=== PATIENT | female | born 1985 | race Caucasian/White ===

== ENCOUNTER 2016-11-22 09:25 | Emergency (ER) | payer BC, OTHER ==
[~2016-11-22] VITALS: Ht 162.6 cm; Wt 103.0 kg
[~2016-11-22 09:25] MED LIST: AMOX500C PO; PREN1CAP7 PO
[2016-11-22 09:26] VITALS: BP 111/67; PULSE 97; RESP 20; TEMP 97.5; O2SAT 96
--- NOTE | 2016-11-22 09:48 | PD ---
HPI Chief Complaint: Cold / Flu Symptoms Time Seen by Provider: 09:48 Travel History International Travel<30 days: No Contact w/Intl Traveler<30days: No Traveled to known affect area: No History of Present Illness HPI 31-year-old female presents the emergency department with sudden onset like symptoms including headache, chills, cough, and body aches since yesterday afternoon. Patient denies nausea or vomiting or diarrhea. Patient is known to be 23 weeks . Patient has chest congestion with productive cough of clear to yellowish sputum. She denies shortness of breath or wheezing however. Patient has no vaginal bleeding or abdominal cramping or pain. Patient has no known drug allergies. PFSH Past Medical History ?: LMP: 06/07/16 Social History Alcohol Use: No Tobacco Use: No Substance Use: No Allergies-Medications (Allergen,Severity, Reaction): Coded Allergies: No Known Allergies (Unverified , 11/12/16) Reported Meds & Prescriptions Reported Meds & Active Scripts Active Amoxicillin 500 Mg Cap 500 Mg PO TID Citranatal [place] ( W/O Vit A W/ Fe Fumar) 27-1-260 Mg Cap 1 Cap PO DAILY Review of Systems Except as stated in HPI: all other systems reviewed are Neg General / Constitutional: Positive: Chills, No: Fever Eyes: No: Visual changes HENT: Positive: Headaches, Sore Throat, Rhinitis, Rhinorrhea, Congestion, No: Ear Discharge, Earache Cardiovascular: No: Chest Pain or Discomfort Respiratory: Positive: Cough, No: Shortness of Breath, Wheezing, Sneezing, Pleuritic Pain Gastrointestinal: No: Abdominal Pain Genitourinary: No: Dysuria Musculoskeletal: Positive: Myalgias, No: Pain Skin: No Rash Neurologic: No: Weakness Psychiatric: No: Depression Endocrine: No: Polydipsia Hematologic/Lymphatic: No: Easy Bruising Physical Exam Narrative GENERAL: Patient appears no acute distress. SKIN: Warm and dry. Normal color. Normal turgor. HEAD: Atraumatic. Normocephalic. EYES: Pupils equal and round. No scleral icterus. No injection or drainage. ENT: No nasal bleeding or discharge. Mucous membranes pink and moist. TMs are clear bilaterally. Pharynx appears unremarkable. Patent. No significant lymphadenopathy. NECK: Trachea midline. Supple nontender without lymphadenopathy. CARDIOVASCULAR: Regular rate and rhythm. RESPIRATORY: No accessory muscle use. Clear to auscultation. Breath sounds equal bilaterally. GASTROINTESTINAL: Abdomen soft, non-tender, nondistended. Hepatic and splenic margins not palpable. Gravid uterus. MUSCULOSKELETAL: Extremities without clubbing, cyanosis, or edema. No obvious deformities. NEUROLOGICAL: Awake and alert. No obvious cranial nerve deficits. Motor grossly within normal limits. Five out of 5 muscle strength in the arms and legs. Normal speech. PSYCHIATRIC: Appropriate mood and affect; insight and judgment normal. Data Data Last Documented VS Vital Signs Date Time Temp Pulse Resp B/P Pulse Ox O2 Delivery O2 Flow Rate FiO2 11/22/16 09:26 97.5 97 20 111/67 96 Room Air Orders Influenzae A/B Antigen (11/22/16 09:51) MDM Medical Decision Making Medical Screen Exam Complete: Yes Emergency Medical Condition: Yes Differential Diagnosis Febrile illness. Viral illness. Influenza. 23 weeks . Narrative Course Patient is medically stable at time of exam. Rapid Influenza is sent to the lab. Rapid influenza is negative for influenza A or B. Patient is given acetaminophen, and Zofran take as needed for symptoms. She is to rest and push fluids as much as possible. Patient to follow with her chocolate packer as needed. Diagnosis Primary Impression: Systemic viral illness Referrals: [facility] Patient Instructions: General Instructions Additional Instructions: Rapid influenza is negative for influenza A or B. Patient is given acetaminophen, and Zofran take as needed for symptoms. She is to rest and push fluids as much as possible. Patient to follow with her chocolate packer as needed. Med/Other Pt SpecificInfo: Prescription(s) given Disposition: 01 DISCHARGE HOME Condition: Stable Damaso Ott Nov 22, 2016 09:48
[2016-11-22] MEDS ORDERED: ACET325T PO (10:51)
[2016-11-22] MEDS ORDERED: ZOFR4TAB PO (10:51)
== END 2016-11-22 11:18 | disposition home or self-care (01) ==
LOC: NEPB 09:25
DX: B34.9 Viral infection, unspecified (principal)
CPT/HCPCS: 87804; 99284

== ENCOUNTER → 2016-12-13 | Outpatient (CLI) | payer BC, OTHER ==
[~2016-12-13] MED LIST changes: -AMOX500C PO; +BENZ20T TOPICAL; +IBUP-232 PO; +SENN1TAB PO
== END ==
LOC: CLAB 08:26
PROVIDERS: ATTEND Nurse Practitioner Women's Health
DX: O36.0130 Maternal care for anti-D [Rh] antibodies, third trimester, not applicable or unspecified (principal)
CPT/HCPCS: 36415; 86850; 86900; 86901; 90384; 96372; J2790

== ENCOUNTER 2016-12-26 16:47 | Emergency (ER) | payer BC, MEDICAID ==
[~2016-12-26 16:47] MED LIST changes: -BENZ20T TOPICAL; -IBUP-232 PO; -SENN1TAB PO
[2016-12-26 17:57] LABS: BACTERIA, URINE FEW /hpf; BLOOD, URINE TRACE (NEG); COMMENT (UR) CULT NOT INDICATED; CULTURE IF INDICATED CULT NOT INDICATED; GLUCOSE,URINE NEG (NEG); KETONE, URINE NEG (NEG); MUCUS URINE FEW /lpf (OCC); NITRITE,URINE NEG (NEG); SQUAMOUS EPITHELIAL CELL URINE 4 /hpf (0-5); URINE COLOR YELLOW (YELLW/STRAW)
[2016-12-26 18:10] VITALS: PULSE 82
--- NOTE | 2016-12-26 18:15 | PD ---
HPI Chief Complaint Pain and lower abdomen after last night getting up to help her child she doesn' t is in trouble and so she ran into his room almost immediately began having lower abdominal muscle pain began hurting in the lower abdomen. She denies bleeding or ruptured membranes. She has noticed some decreased movement today. Date Seen: Dec 26, 2016 Travel History International Travel<30 Days: No Contact w/Intl Traveler<30Days: No Known Affected Area: No History of Present Illness HPI This patient is a 31-year-old white female at 28 weeks with decreased movement movement lower abdominal pelvic pain and pressure after last night getting up in running and her son's room. P.m. and soon after that started having all this pain and that she would go through the night when turning over moving it which she this pain across it would be very uncomfortable. heart rate tracing is reactive today there no contractions she has no rupture the membranes Para: 2 : 3 History Obstetric History Obstetric History 2 previous vaginal deliveries Social History Narrative Social History [facility] Alcohol Use: No Tobacco Use: No Substance Abuse: No Allergies-Medications (Allergen,Severity, Reaction): Coded Allergies: No Known Allergies (Unverified , 12/10/16) Home Meds Active Scripts W/O Vit A W/ Fe Fumar (Citranatal [place])27-1-260 Mg Cap1 Cap PO DAILY #30 CAP Ref 11 Prov:BowlingAnnette CNM [facility] 09/07/16 Review of Systems General / Constitutional: No: Fever, Weight Gain, Chills, Other Eyes: No: Diploplia, Blurred Vision, Visual changes, Pain, Photophobia HENT: No: Headaches, Vertigo, Lightheadedness Cardiovascular: No: Irregular Rhythm, Chest Pain or Discomfort, Palpitations, Tachycardia, Syncope, Varicosities, Edema, Cyanosis Respiratory: No: Cough, Short of Breath, Other Gastrointestinal: Abdominal Pain, No: Nausea, Vomiting, Diarrhea Genitourinary: No: Decreased Urinary Output, Oliguria Musculoskeletal: No: Limited ROM, Weakness, Cramping, Edema, Pain Skin: No Rash, No Itching, No Dryness, No Lumps, No Change in Pigmentation, No Change in Nails, No Alopecia, No Lesions Neurologic: No: Weakness, Dizziness, Syncope, Focal Abnormalities, Coordination Problem, Headache, Slurred Speech, Seizures Psychiatric: No: Depression, Suicidal Ideations, Homicidal Ideation Endocrine: No: Heat Intolerance, Cold Intolerance, Polydipsia, Polyuria, Other Physical Exam Narrative GENERAL: Well-nourished, well-developed patient. SKIN: Warm and dry. HEAD: Normocephalic and atraumatic. EYES: No scleral icterus. No injection or drainage. ENT: No nasal drainage noted. Mucous membranes pink. Airway patent. NECK: Supple, trachea midline. No JVD. CARDIOVASCULAR: Regular rate and rhythm without murmurs, gallops, or rubs. RESPIRATORY: Breath sounds equal bilaterally. No accessory muscle use. BREASTS: Bilateral exam showed no masses , no retractions, no nipple discharge. ABDOMEN/GI: Abdomen soft, non-tender, bowel sounds present, no rebound, no guarding Gravid to [-28] weeks size Fundal Height: [-28] GENITOURINARY: External Genitalia: intact and normal in appearance BUS glands: [-] Cervix: [Closed-] Dilatation: [Closed-] Effacement: [-] Thick Station: [-3] Membranes: [intact ] Uterine Contractions: [-None] FHT's: Category: [1-] Baseline: [-133] Reactive: [yes-] Variability: [-mod] Decels: [none-] EXTREMITIES: No cyanosis or edema. BACK: Nontender without obvious deformity. No CVA tenderness. NEUROLOGICAL: Awake and alert. Motor and sensory grossly within normal limits. Five out of 5 muscle strength in all muscle groups. Normal speech. Data Data Orders Vital Signs (Adult) .ON ADMISSION (12/26/16 17:31) ^ Labor Status (12/26/16 17:31) Urinalysis - C+S If Indicated (12/26/16 17:31) Labs Laboratory Tests Test 12/26/16 17:17 Urine Color YELLOW Urine Turbidity HAZY Urine pH 6.0 Urine Specific [place] 1.025 Urine Protein 30 Urine Glucose (UA) NEG Urine Ketones NEG Urine Occult Blood TRACE Urine Nitrite NEG Urine Bilirubin NEG Urine Urobilinogen 2.0 Urine Leukocyte Esterase NEG Urine RBC 2 Urine WBC 1 Urine Squamous Epithelial 4 Cells Urine Bacteria FEW Urine Mucus FEW Microscopic Urinalysis Comment CULT NOT INDICATED MDM Interpretation(s) This patient is a 31-year-old white female at 28 weeks presents complaining of lower abdominal pain since last night getting up to help her son and she ran into his room in over herself she pulls soft tissue ligaments or muscle strain and pain. heart rate tracing is reactive she has no contractions are urinalysis is negative, so was almost certainly soft tissue strain. Plan offered the patient a pain shot if she wants it to help relieve some of the symptoms otherwise she needs to be at home bedrest someone to help her with her children so she can rest and take Tylenol liberally for pain heating pad on low and lower abdomen over soaking in a hot bath tub also to be at bedrest over the next 48 hours to allow this to heal if she keeps moving and going and she and moving around she's going to keep hurting Diagnosis Diagnosis: Primary Impression: Abdominal pain affecting , antepartum Additional Impression: Decreased movement affecting management of in third trimester Disposition: 01 DISCHARGE HOME Condition: Stable Patient Instructions: General Instructions Departure Forms: Tests/Procedures Pedro Brown II, MD Dec 26, 2016 18:15
== END 2016-12-26 18:34 | disposition home or self-care (01) ==
LOC: HOBED 16:47
DX: O36.8130 Decreased fetal movements, third trimester, not applicable or unspecified (principal); R10.30 Lower abdominal pain, unspecified; Z3A.28 28 weeks gestation of pregnancy
CPT/HCPCS: 81001; 99284

== ENCOUNTER 2017-02-17 10:35 | Emergency (ER) | payer BC, MEDICAID ==
--- NOTE | 2017-02-17 11:17 | PD ---
HPI Chief Complaint Contractions Time Seen: 11:14 Travel History International Travel<30 Days: No Contact w/Intl Traveler<30Days: No Known Affected Area: No History of Present Illness HPI 31-year-old who is at 36 weeks 3 days comes in complaining of contractions intermittently since 7 AM this morning. Although they are uncomfortable she would not call them painful but they have been persistent. Patient has a history of a spontaneous vaginal delivery of a 9 lbs. 8 oz. child followed by a section for macrosomia at 10 lbs. 11 oz. and she is looking forward to a vaginal with this . No issues thus far Para: 2 : 3 History Obstetric History Obstetric History Spontaneous vaginal delivery section for macrosomia and polyhydramnios 10 lbs. 11 oz. Past Surgical History Narrative Surgical section Cholecystectomy Family History Family History: Negative Social History Alcohol Use: No Tobacco Use: No Substance Abuse: No Allergies-Medications (Allergen,Severity, Reaction): Coded Allergies: No Known Allergies (Unverified , 02/04/17) Home Meds Active Scripts W/O Vit A W/ Fe Fumar (Citranatal [place])27-1-260 Mg Cap1 Cap PO DAILY #30 CAP Ref 11 Prov:Annette Bowling CNM [facility] 09/07/16 Review of Systems Except as stated in HPI: all other systems reviewed are Neg Physical Exam Narrative GENERAL: Well-nourished, well-developed patient. SKIN: Warm and dry. HEAD: Normocephalic and atraumatic. EYES: No scleral icterus. No injection or drainage. ENT: No nasal drainage noted. Mucous membranes pink. Airway patent. NECK: Supple, trachea midline. No JVD. CARDIOVASCULAR: Regular rate and rhythm without murmurs, gallops, or rubs. RESPIRATORY: Breath sounds equal bilaterally. No accessory muscle use. BREASTS: Bilateral exam showed no masses , no retractions, no nipple discharge. ABDOMEN/GI: Abdomen soft, non-tender, bowel sounds present, no rebound, no guarding Gravid to [-39] weeks size Fundal Height: [-] GENITOURINARY: External Genitalia: intact and normal in appearance BUS glands: [Normal-] Cervix: [Posterior-] Dilatation: [-Closed] Effacement: [-25] Station: [-3] Presentation: [-Vertex ] Membranes: [intact ] Uterine Contractions: [Every 3-5-] FHT's: Category: [1-] Baseline: [140-] Reactive: [-Moderate] Variability: [-Moderate] Decels: [Absent-] EXTREMITIES: No cyanosis or edema. BACK: Nontender without obvious deformity. No CVA tenderness. NEUROLOGICAL: Awake and alert. Motor and sensory grossly within normal limits. Five out of 5 muscle strength in all muscle groups. Normal speech. Reexamination at 12:17 Contractions are less frequent Cervix unchanged. FHR tracing unchanged with moderate variability, baseline 140 Data Data Orders Vital Signs (Adult) .ON ADMISSION (02/17/17 11:12) ^ Labor Status (02/17/17 11:12) Diet Liquid (02/17/17 Lunch) Group B Beta Strep Scrn (Gbs) (02/17/17 11:12) MDM Medical Record Reviewed: Yes Plan at 36 weeks and 3 days with false labor Patient has follow-up this week to see [facility] Will discharge home with hydration and increase rest today Diagnosis Diagnosis: Primary Impression: 36 weeks gestation of Additional Impressions: False labor False labor before 37 completed weeks of gestation during in third trimester, antepartum Disposition: DISCHARGE HOME Rain Stanford MD February 17, 2017 11:17
== END 2017-02-17 12:36 | disposition home or self-care (01) ==
LOC: HOBED 10:35
DX: O47.03 False labor before 37 completed weeks of gestation, third trimester (principal); O34.219 Maternal care for unspecified type scar from previous cesarean delivery; Z3A.36 36 weeks gestation of pregnancy
CPT/HCPCS: 59025; 87081

== ENCOUNTER 2017-03-14 22:12 | Inpatient (IN) | payer BC, MEDICAID ==
[2017-03-14] MEDS ORDERED: LACTATED RINGER'S 1000 ML INJ 1,000 ML IV SCH (22:52)
[2017-03-14] MEDS ORDERED: LACTATED RINGER'S 1000 ML INJ 1,000 ML IV PRN (22:52)
--- NOTE | 2017-03-14 22:56 | PD ---
HPI Chief Complaint Contractions Date Seen: Mar 14, 2017 Travel History International Travel<30 Days: No Contact w/Intl Traveler<30Days: No Known Affected Area: No History of Present Illness HPI Patient is a 32-year-old female at 40/0 weeks gestation, patient of [facility], that presents to the [place] [facility] ED with a chief complaint of contractions that began around 9 AM this morning but worsened at around 6:30 PM this evening. Patient denies loss of fluid or vaginal bleeding but may have lost her mucous plug. Notably, she had a consult this morning with the OB hospitalist for a considering that has second ended in a for failure to progress. She denies any complications with this , stating that all her test has been negative all within normal limits, and the baby has been growing well with normal fluid levels. Notably, she is GBS negative. Para: 2 : 3 History Past Medical History Medical History: Denies Significant Hx Obstetric History Obstetric History First was a vaginal delivery - 9 lbs. 5 oz. Second was a section for failure to progress - 10 lbs. 9 oz. Past Surgical History Narrative Surgical Cholecystectomy Family History Narrative Family History Maternal grandfather had diabetes No family history of hypertension Social History Alcohol Use: No Tobacco Use: No Substance Abuse: No Allergies-Medications (Allergen,Severity, Reaction): Coded Allergies: No Known Allergies (Unverified , 03/12/17) Home Meds Active Scripts W/O Vit A W/ Fe Fumar (Citranatal [place])27-1-260 Mg Cap1 Cap PO DAILY #30 CAP Ref 11 Prov:Annette Bowling CNM [facility] 09/07/16 Review of Systems Except as stated in HPI: all other systems reviewed are Neg Physical Exam Narrative GENERAL: Well-nourished, well-developed patient. SKIN: Warm and dry. HEAD: Normocephalic and atraumatic. EYES: No scleral icterus. No injection or drainage. ENT: No nasal drainage noted. Mucous membranes pink. Airway patent. NECK: Supple, trachea midline. No JVD. CARDIOVASCULAR: Regular rate and rhythm without murmurs, gallops, or rubs. RESPIRATORY: Breath sounds equal bilaterally. No accessory muscle use. BREASTS: Bilateral exam showed no masses , no retractions, no nipple discharge. ABDOMEN/GI: Abdomen soft, non-tender, bowel sounds present, no rebound, no guarding Gravid to 40 weeks size Fundal Height: 40 cm GENITOURINARY: External Genitalia: intact and normal in appearance Cervix: Midposition Dilatation: 5-6cm Effacement: 70% Station: -3 Presentation: Vertex Membranes: intact Uterine Contractions: present q2-3mins FHT's: Category: I Baseline: 145 Reactive: Reactive up to 180 Variability: Moderate Decels: None EXTREMITIES: No cyanosis or edema. BACK: Nontender without obvious deformity. No CVA tenderness. NEUROLOGICAL: Awake and alert. Motor and sensory grossly within normal limits. Five out of 5 muscle strength in all muscle groups. Normal speech. Data Data Vital Signs Reviewed: Yes Orders Ob (2e) Additional Admit Info (03/14/17 22:40) Admit To Inpatient (03/14/17 ) Vital Signs (Adult) .Per protocol (03/14/17 22:52) Heart (03/14/17 22:52) Amnioinfusion (03/14/17 22:52) Urinary Catheter Management .ONCE (03/14/17 22:52) Diet Npo (03/15/17 Breakfast) Lactated Ringer's 1000 Ml Inj (Lr 1000 M (03/14/17 22:52) Lactated Ringer's 1000 Ml Inj (Lr 1000 M (03/14/17 22:52) Sodium Chlorid 0.9% 500 Ml Inj (Ns 500 M (03/14/17 23:00) Sodium Chlor 0.9% 1000 Ml Inj (Ns 1000 M (03/14/17 23:12) Lidocaine 1% Inj (50 Ml) (Xylocaine 1% I (03/14/17 23:00) Citric Acid-Sodium Citrate Liq (Bicitra (03/14/17 23:00) Fentanyl Inj (Fentanyl Inj) (03/14/17 23:00) Fentanyl Inj (Fentanyl Inj) (03/14/17 23:00) Complete Blood Count With Diff (03/14/17 22:52) Hold Clot (03/14/17 22:52) Abo/Rh Blood Type (03/14/17 22:52) Urinalysis - C+S If Indicated (03/14/17 22:52) Resp Oxygen Non Rebreathe Mask (03/14/17 ) ^ Epidural / Intrathecal Infus (03/14/17 22:52) Oxytocin 30 Units-500ml Premix (Pitocin (03/14/17 23:00) Lidocaine 1% Inj (50 Ml) (Xylocaine 1% I (03/14/17 23:00) Light Mineral Oil (Muri-Lube Oil) (03/14/17 23:00) Inpatient Certification (03/14/17 ) Specimen To Be Collected PRN (03/14/17 22:52) MDM Medical Record Reviewed: Yes Interpretation(s) 32-year-old presents in active labor, GBS positive Plan 1. Intrauterine -Category 1 tracing - reassuring -Membranes intact -A-, will require [place] after delivery 2. Actively gail, consider augmentation if spaced out -Admit to L&D -Labs sent -Type and screen -Plan for epidural Xochitl Tapia MD R1 Mar 14, 2017 22:56
--- NOTE | 2017-03-14 22:57 | HHI.HP ---
History & Physical H&P Chief Complaint Patient is 32-year-old white female previous now presents in labor CTXing regularly, Patient is desiring a delivery if possible since she delivered her first baby vaginally Date Seen: Mar 14, 2017 Travel History International Travel<30 Days: No Contact w/Intl Traveler<30Days: No Known Affected Area: No History of Present Illness HPI This patient is 32-year-old white female previous at 40 weeks presents for consultation in scheduling if she doesn't deliver vaginally in the next week. [facility] and her records are available. She delivered her first baby vaginally was 9 lbs. 5 oz. She had no shoulder dystocia problem with that delivery. Second baby ultrasound findings which showed baby was 13 pounds on ultrasound so heavily as suggested induction of labor. She was induced did not change her cervix well and was sectioned for failure to progress baby was 10 lbs. 9 oz. this current she had an ultrasound done on 03/07 1 week ago and the baby was 8 lbs. 14 oz. the patient is high motivated to have a vaginal delivery if possible and would like to wait a week and schedule her at that time and she has not had labor by then will have a repeat section Para: 2 : 3 History (Limited) History Obstetric History Obstetric History , One vaginal delivery and 1 section, the patient has history of large babies first baby 9 lbs. 5 oz. second baby 10 lbs. 9 oz. Past Surgical History Narrative Surgical 1 , GB out Social History Alcohol Use: No Tobacco Use: No Substance Abuse: No Allergies-Medications Allergies-Medications (Allergen,Severity, Reaction): Coded Allergies: No Known Allergies (Unverified , 03/12/17) Home Meds Active Scripts W/O Vit A W/ Fe Fumar (Citranatal [place])27-1-260 Mg Cap1 Cap PO DAILY #30 CAP Ref 11 Prov:Annette Bowling CNM [facility] 09/07/16 ROS Review of Systems General / Constitutional: No: Fever, Weight Gain, Chills, Other Eyes: No: Diploplia, Blurred Vision, Visual changes, Pain, Photophobia HENT: No: Headaches, Vertigo, Lightheadedness Cardiovascular: No: Irregular Rhythm, Chest Pain or Discomfort, Palpitations, Tachycardia, Syncope, Varicosities, Edema, Cyanosis Respiratory: No: Cough, Short of Breath, Other Gastrointestinal: Abdominal Pain, No: Nausea, Vomiting, Diarrhea Genitourinary: No: Decreased Urinary Output, Oliguria Musculoskeletal: No: Limited ROM, Weakness, Cramping, Edema, Pain Skin: No Rash, No Itching, No Dryness, No Lumps, No Change in Pigmentation, No Change in Nails, No Alopecia, No Lesions Neurologic: No: Weakness, Dizziness, Syncope, Focal Abnormalities, Coordination Problem, Headache, Slurred Speech, Seizures Psychiatric: No: Depression, Suicidal Ideations, Homicidal Ideation Endocrine: No: Heat Intolerance, Cold Intolerance, Polydipsia, Polyuria, Other Physical Exam Physical Exam Narrative GENERAL: Well-nourished, well-developed patient. SKIN: Warm and dry. HEAD: Normocephalic and atraumatic. EYES: No scleral icterus. No injection or drainage. ENT: No nasal drainage noted. Mucous membranes pink. Airway patent. NECK: Supple, trachea midline. No JVD. CARDIOVASCULAR: Regular rate and rhythm without murmurs, gallops, or rubs. RESPIRATORY: Breath sounds equal bilaterally. No accessory muscle use. BREASTS: Bilateral exam showed no masses , no retractions, no nipple discharge. ABDOMEN/GI: Abdomen soft, non-tender, bowel sounds present, no rebound, no guarding Gravid to [-40] weeks size Fundal Height: [-42] GENITOURINARY: External Genitalia: intact and normal in appearance BUS glands: [-] Cervix: [-] Dilatation: [5-6-] Effacement: [-70] Station: [-3] Presentation: vtx Membranes: [intact ] Uterine Contractions: regular] FHT's: Category: [-1] Baseline: [133-] Reactive: [-yes] Variability: [mod-] Decels: [0-] EXTREMITIES: No cyanosis or edema. BACK: Nontender without obvious deformity. No CVA tenderness. NEUROLOGICAL: Awake and alert. Motor and sensory grossly within normal limits. Five out of 5 muscle strength in all muscle groups. Normal speech. Data Data [facility] Interpretation(s) Patient is 32-year-old white female previous now 40 weeks gestation presents in labor cx 5-6 cm , for from the [facility], patient desires a if possible as she delivered her first baby vaginally. The first baby weighed 9 lbs. 5 oz. The second baby was measuring on ultrasound very heavy was 13 pounds so she was induced and that failed and she had a , that baby weighed 10 lbs. 9 oz. Plan Plan is for total outpatient another week to go to labor and sagittal was estimated weight week ago was 8 lbs. 14 oz. baby is probably 9 pounds now and she's delivered a 9 pound pounder in the past without problem . She had has risk and benefits of delivering vaginally there is a possibility of shoulder dystocia and trauma from vaginal . Diagnosis: previous section Disposition Admit to L&D Condition: Stable Pedro Brown II, MD Mar 14, 2017 13:36 Pdero Brown II, MD Mar 14, 2017 22:57
[2017-03-14] MEDS ORDERED: MINERAL OIL 10 ML VIAL TOPICAL PRN (23:00)
[2017-03-14] MEDS ORDERED: SODIUM CHLORID 0.9% 500 ML INJ 500 ML IV PRN (23:00)
[2017-03-14] MEDS ORDERED: CITRIC ACID-SODIUM CITRATE LIQ 30 ML UDC PO SCH (23:00)
[2017-03-14] MEDS ORDERED: LIDOCAINE HCL 1% 50 ML VIAL I-DERMAL PRN (23:00)
[2017-03-14] MEDS ORDERED: OXYTOCIN 30 UNITS-500ML PREMIX 500 ML IV ONE (23:00)
[2017-03-14] MEDS ORDERED: LIDOCAINE HCL 1% 50 ML VIAL INFIL PRN (23:00)
[2017-03-14] MEDS ORDERED: SODIUM CHLOR 0.9% 1000 ML INJ 1,000 ML IV PRN (23:12)
[2017-03-14 23:24] LABS: AUTOMATED NEUTROPHIL # 9.8 TH/MM3 (1.8-7.7); BASOPHIL # 0.1 TH/MM3 (0-0.2); BASOPHIL % 0.5 % (0.0-2.0); EOSINOPHIL # 0.2 TH/MM3 (0-0.4); EOSINOPHIL % 1.4 % (0.0-4.0); HEMO FLAGS DIFF FINAL; LYMPH % 17.9 % (9.0-44.0); LYMPHOCYTE # 2.5 TH/MM3 (1.0-4.8); MEAN CELL VOLUME 85.2 FL (80.0-100.0); MEAN CORPUSCULAR HEMOGLOBIN 29.2 PG (27.0-34.0); MEAN CORPUSCULAR HGB CONC 34.3 % (32.0-36.0); MONO % 10.4 % (0.0-8.0); NEUT % 69.8 % (16.0-70.0); PLATELET COUNT 331 TH/MM3 (150-450); RED BLOOD COUNT 4.34 MIL/MM3 (4.00-5.30); RED CELL DISTRIBUTION WIDTH 14.8 % (11.6-17.2)
[2017-03-14 23:35] LABS: BACTERIA, URINE OCC /hpf; BLOOD, URINE NEG (NEG); COMMENT (UR) CULT NOT INDICATED; CULTURE IF INDICATED CULT NOT INDICATED; GLUCOSE,URINE NEG (NEG); KETONE, URINE NEG (NEG); MUCUS URINE FEW /lpf (OCC); NITRITE,URINE NEG (NEG); SQUAMOUS EPITHELIAL CELL URINE 1 /hpf (0-5); URINE COLOR YELLOW (YELLW/STRAW)
[2017-03-14] MEDS ORDERED: ePHEDrine/NS 25 MG/5 ML SYR ONE (23:40)
[2017-03-14] MEDS ORDERED: fentaNYL 2MCG-BUPIV 0.125% INJ 100 ML ONE (23:40)
[2017-03-14 23:50] VITALS: BP 119/66; PULSE 68
[2017-03-14 23:55] VITALS: PULSE 77; O2SAT 100
[2017-03-14 23:57] VITALS: BP 121/66; PULSE 67
[2017-03-15] VITALS (12 sets, daily range): BP systolic 106–125; BP diastolic 60–85; PULSE 66–89; RESP 16–18; TEMP 98–98.7; O2SAT 100
[2017-03-15] MEDS ORDERED: ePHEDrine/NS 25 MG/5 ML SYR IV PRN (00:30)
[2017-03-15] MEDS ORDERED: fentaNYL 2MCG-BUPIV 0.125% 100 ML EPIDURAL SCH (00:30)
[2017-03-15] MEDS ORDERED: NO SYSTEM NARCOTICS PRN (00:30)
[2017-03-15] MEDS ORDERED: DO NOT ADMINISTER ANTICOAGULANTS PRN (00:30)
[2017-03-15] MEDS ORDERED: oxyCODONE/ACETAMINOPHEN 5 MG/325 MG TAB PO PRN ×2 (02:00)
[2017-03-15] MEDS ORDERED: WITCH HAZEL 50%/GLYCERIN 12.5% 40 PAD JAR TOPICAL PRN (02:00)
[2017-03-15] MEDS ORDERED: DOCUSATE SODIUM 50 MG/SENNA 8.6 MG TAB PO PRN (02:00)
[2017-03-15] MEDS ORDERED: SODIUM CHLORIDE 0.9% FLUSH 10 ML FLUSH IV FLUSH PRN (02:00)
[2017-03-15] MEDS ORDERED: SODIUM CHLORIDE 0.9% FLUSH 10 ML FLUSH IV FLUSH SCH (02:00)
[2017-03-15] MEDS ORDERED: ZOLPIDEM TARTRATE 5 MG TAB PO PRN (02:00)
[2017-03-15] MEDS ORDERED: BENZOCAINE 20% TOPICAL SPRAY 60 ML CAN TOPICAL PRN (02:00)
[2017-03-15] MEDS ORDERED: ALUMINUM/MAGNESIUM/SIMETH 30 ML CUP PO PRN (02:00)
[2017-03-15] MEDS ORDERED: ONDANSETRON ODT 4 MG TAB PO PRN (02:00)
--- NOTE | 2017-03-15 02:00 | PD.OB.DELI ---
Delivery Date: Mar 15, 2017 Anesthesia: Epidural Episiotomy: None Vaginal Delivery: Normal Presentation: Occiput anterior Nuchal Cord: x1 (True knot) Delayed cord clamping (45 sec): Yes Infant: Female One Minute : 9 Five Minute : 9 Weight: 3714 g Placenta: Spontaneous delivery, Intact, 3 vessel cord Laceration: No lacerations Additional Information 32 G3 now P3 delivered a baby girl vaginally with no complications and no lacerations. performed by Dr. Tapia, supervised by Dr. Mckoy and Dr. Kevin Tapia,Xochitl Barragan Mar 15, 2017 02:00
[2017-03-15] MEDS ORDERED: OXYTOCIN 30 UNITS-500ML PREMIX 500 ML ONE (02:43)
[2017-03-15] MEDS ORDERED: OXYTOCIN 30 UNITS/NS 500ML PREMIX IV SCH (03:00)
--- NOTE | 2017-03-15 07:20 | HHI.OB ---
Subjective Post Day: 0 Remarks day # 0. AFVSS overnight. Decreased lochia. Denies dysuria. No breast tenderness. She is feeding the baby via breast. Appetite good. No nausea or vomiting. Ambulating well. Denies calf pain or shortness of breath. Otherwise, she is doing well this morning and has no other concerns. Objective Vitals/I&O Vital Signs Date Time Temp Pulse Resp B/P Pulse Ox O2 Delivery O2 Flow Rate FiO2 03/15/17 04:15 98.0 18 03/15/17 04:15 70 108/63 03/15/17 02:15 98.0 18 03/15/17 02:01 89 106/81 03/15/17 01:56 79 113/85 03/15/17 01:31 70 117/69 03/15/17 01:00 71 120/65 03/15/17 00:31 79 111/63 03/15/17 00:10 71 115/72 03/15/17 00:06 70 112/64 03/15/17 00:00 75 125/76 03/15/17 00:00 100 03/15/17 00:00 81 03/14/17 23:57 67 121/66 03/14/17 23:55 77 03/14/17 23:55 100 03/14/17 23:50 68 119/66 Objective Remarks GENERAL: Well-nourished, well-developed female in no apparent distress. She is breast-feeding baby without difficulty. CARDIOVASCULAR: Regular rate and rhythm without murmurs, gallops, or rubs. RESPIRATORY: Breath sounds equal bilaterally. No accessory muscle use. ABDOMEN/GI: Abdomen soft, non-tender. Fundus: Firm, non-tender at umbilicus. GENITOURINARY: Light to moderate bleeding. EXTREMITIES: No cyanosis or edema, non-tender, without signs of DVT. Medications and IVs Current Medications Medications (Trade) Dose Ordered Sig/Victorina Route Start Time Stop Time Status Last Admin (NS Flush) 2 ml BID IV FLUSH 03/15/17 02:00 (NS Flush) 2 ml UNSCH PRN IV FLUSH 03/15/17 02:00 (Tylenol) 650 mg Q4H PRN PO 03/15/17 02:00 (Motrin) 600 mg Q6H PRN PO 03/15/17 02:00 (Percocet 5-325 Mg) 1 tab Q4H PRN PO 03/15/17 02:00 (Percocet 5-325 Mg) 2 tab Q4H PRN PO 03/15/17 02:00 (Americaine 20% Top Spr) 1 spray Q4H PRN TOPICAL 03/15/17 02:00 (Tucks Pads) 1 applic QID PRN TOPICAL 03/15/17 02:00 (Cristela-Colace) 2 tab Q12H PRN PO 03/15/17 02:00 (Ambien) 5 mg HS PRN PO 03/15/17 02:00 (M-M-R Ii Inj) 0.5 ml ONCE ONCE SQ 03/15/17 16:00 03/15/17 16:01 (Boostrix Inj) 0.5 ml ONCE ONCE IM 03/15/17 16:00 03/15/17 16:01 (Mag-Al Plus Susp Liq) 15 ml Q8H PRN PO 03/15/17 02:00 (Zofran Odt) 4 mg Q6H PRN PO 03/15/17 02:00 Assessment/Plan Assessment and Plan 32-year-old G3P now 3 who is PPD# 1 s/p . -Continue routine care. -Tylenol and Motrin PRN pain. -Encouraged OOB. Advised pelvic rest for 6 wks. -Re: ctrl, she would like a tubal ligation. She plans to follow up with [facility] to discuss this as her is also considering sterilization -Anticipate discharge tomorrow -Blood type is A-, will require program Discussed with Dr. Brown, Zakiya Corley MD R1 Mar 15, 2017 07:20
[2017-03-15] MEDS: IBUPROFEN 600 MG TAB PO PRN (12:15)
[2017-03-15] MEDS: ACETAMINOPHEN 325 MG TAB PO PRN ×2 (14:20→19:37)
[2017-03-15] MEDS ORDERED: MEASLES, MUMPS, RUBELLA VACCINE 0.5 ML VIAL SQ ONE (16:00)
[2017-03-15] MEDS ORDERED: DIPHTH/TETANUS/ACEL PERTUSSIS (BOOSTER) 0.5 ML VIAL/PFS IM ONE (16:00)
[2017-03-16] MEDS: IBUPROFEN 600 MG TAB PO PRN ×2 (02:57→10:03)
[2017-03-16] MEDS: ACETAMINOPHEN 325 MG TAB PO PRN ×2 (02:57→10:03)
[2017-03-16 07:55] VITALS: BP 110/75; PULSE 65; RESP 18; TEMP 97.7
[2017-03-16] MEDS ORDERED: IBUP-232 PO (08:30)
[2017-03-16] MEDS ORDERED: BENZ20T TOPICAL (08:30)
[2017-03-16] MEDS ORDERED: SENN1TAB PO (08:30)
--- NOTE | 2017-03-16 08:31 | HHI.DCPOC ---
Discharge Care Plan Diagnosis: (1) Vaginal delivery Report Symptoms to Your Doctor -Temperature above 100.5 degrees -Redness, of incision or excessive or foul smelling drainage -Unusual pain or calf pain -Increased vaginal bleeding -Painful or difficulty urinating -Feelings of extreme sadness or anxiety after 2 weeks Goals to Promote Your Health * To prevent worsening of your condition and complications * To maintain your health at the optimal level Directions to Meet Your Goals Take your medications as prescribed Follow your dietary instruction Follow activity as directed Ensure plenty of rest for recovery Drink fluids for hydration Keep your appointments as scheduled Take your immunizations and boosters as scheduled If your symptoms worsen call your PCP, if no PCP go to Urgent Care Center or Emergency Room Smoking is Dangerous to Your Health. Avoid second hand smoke Call the 24-hour crisis hotline for domestic abuse at Jordan Adair MD R2 Mar 16, 2017 08:31
--- NOTE | 2017-03-16 08:34 | HHI.OB ---
Subjective Post Day: 1 Remarks Patient is doing well this morning. Her pain is controlled with medications. Her vaginal bleeding has decreased. She is breast-feeding successfully. She is ambulating and voiding without difficulty. She is able to pass gas. She would like to go home today if possible. Denies fevers, chills, nausea, vomiting. (Jordan Adair MD R2) Objective Vitals/I&O Vital Signs Date Time Temp Pulse Resp B/P Pulse Ox O2 Delivery O2 Flow Rate FiO2 03/15/17 19:50 66 18 113/60 03/15/17 19:50 98.6 Objective Remarks GENERAL: Well-nourished, well-developed female in no apparent distress. She is breast-feeding baby without difficulty. CARDIOVASCULAR: Regular rate and rhythm without murmurs, gallops, or rubs. RESPIRATORY: Breath sounds equal bilaterally. No accessory muscle use. ABDOMEN/GI: Abdomen soft, non-tender. Fundus: Firm, non-tender at umbilicus. GENITOURINARY: Light to moderate bleeding. EXTREMITIES: No cyanosis or edema, non-tender, without signs of DVT. Medications and IVs Current Medications Medications (Trade) Dose Ordered Sig/Victorina Route Start Time Stop Time Status Last Admin (NS Flush) 2 ml BID IV FLUSH 03/15/17 02:00 (NS Flush) 2 ml UNSCH PRN IV FLUSH 03/15/17 02:00 (Tylenol) 650 mg Q4H PRN PO 03/15/17 02:00 03/16/17 02:57 (Motrin) 600 mg Q6H PRN PO 03/15/17 02:00 03/16/17 02:57 (Percocet 5-325 Mg) 1 tab Q4H PRN PO 03/15/17 02:00 (Percocet 5-325 Mg) 2 tab Q4H PRN PO 03/15/17 02:00 (Americaine 20% Top Spr) 1 spray Q4H PRN TOPICAL 03/15/17 02:00 (Tucks Pads) 1 applic QID PRN TOPICAL 03/15/17 02:00 (Cristela-Colace) 2 tab Q12H PRN PO 03/15/17 02:00 (Ambien) 5 mg HS PRN PO 03/15/17 02:00 (Mag-Al Plus Susp Liq) 15 ml Q8H PRN PO 03/15/17 02:00 (Zofran Odt) 4 mg Q6H PRN PO 03/15/17 02:00 (Jordan Adair MD R2) Assessment/Plan Assessment and Plan 32-year-old G3P now 3 who is PPD# 1 s/p at 2 AM on 03/15. -Continue routine care. -Tylenol and Motrin PRN pain. -Encouraged OOB. Advised pelvic rest for 6 wks. -Re: ctrl, she would like a tubal ligation. She plans to follow up with [facility] to discuss this as her is also considering sterilization -Discharged today Discussed with Dr. Stanford Discharge Planning Today (Jordan Adair MD R2) Collaborating MD Comments Agree with assessment and management plans (Rain Stanford MD) Jordan Adair MD R2 Mar 16, 2017 08:34 Rain Stanford MD Mar 16, 2017 09:20
== END 2017-03-16 12:30 | disposition home or self-care (01) | DRG 775 ==
LOC: HOBED 22:12 → H2EA 22:44 → H1EA 03-15 03:49
PROVIDERS: ADMIT Obstetrics & Gynecology Maternal & Fetal Medicine; ATTEND Obstetrics & Gynecology Maternal & Fetal Medicine
PROC: 10E0XZZ Delivery of Products of Conception, External Approach (ICD-10-PCS; principal; 2017-03-15)
DX: O99.824 Streptococcus B carrier state complicating childbirth (principal); O34.211 Maternal care for low transverse scar from previous cesarean delivery; O69.2XX0 Labor and delivery complicated by other cord entanglement, with compression, not applicable or unspecified; Z3A.40 40 weeks gestation of pregnancy; Z37.0 Single live birth
CPT/HCPCS: 81001; 85025; 86850; 86900; 86901; 90715; J2590; J7120